=== PATIENT | male | born 1960 | race Caucasian/White ===

== ENCOUNTER 2016-09-13 16:07 | Inpatient (IN) | payer OTHER ==
[~2016-09-13] VITALS: Ht 177.8 cm; Wt 125.0 kg
[2016-09-20] MEDS ORDERED: FISH1000 PO (09:06)
[2016-09-20] MEDS ORDERED: VALT500T PO (09:06)
[2016-09-20] MEDS ORDERED: CELE200C PO (09:06)
[2016-09-20] MEDS ORDERED: VITA10003 PO (09:06)
[2016-09-20] MEDS ORDERED: METF1000 PO (09:06)
[2016-09-20] MEDS ORDERED: LEVO125T4 PO (09:06)
[2016-09-20] MEDS ORDERED: ACET-703 PO (09:06)
[2016-09-20] MEDS ORDERED: SIMV20TA PO (09:06)
[2016-09-20] MEDS ORDERED: CIAL20TA PO (09:06)
[2016-09-20] MEDS ORDERED: LISI10TA3 PO (09:06)
[2016-09-20] MEDS ORDERED: FORTESTA PO (09:06)
--- NOTE | 2016-09-28 13:40 | MH ---
cc: Sanchez GARRETT M.D. DATE OF ADMISSION: 09/29/2016 ADMITTING DIAGNOSIS: Osteoarthritic degeneration right hip now being admitted for right total hip arthroplasty. HISTORY OF PRESENT ILLNESS: This pleasant 55-year-old male is being admitted today for right total hip arthroplasty due to severe painful osteoarthritic degeneration right hip. OTHER PAST HISTORY: 1. The patient has a history of arthritis. 2. Diabetes 3. Back pain 4. Thyroid issues CURRENT MEDICATIONS 1. Metformin. 2. Lisinopril. 3. Simvastatin 4. Thyroxine. 5. Celebrex. 6. Valacyclovir 7. Tamsulosin 8. Cialis as needed for michael. 9. Vitamin D3 10. Fish oil 11. Tylenol for arthritis. PAST SURGICAL HISTORY: Previous surgeries include the thoracic removed from his left leg in the past and some moles removed. REVIEW OF SYSTEMS Noncontributory. FAMILY HISTORY Noncontributory. SOCIAL HISTORY: The patient does not smoke. Drinks occasionally. ALLERGIES Has no known allergies. PHYSICAL EXAMINATION IN GENERAL: A 55-year-old male well-developed, well-nourished oriented x3 complain of pain his right hip. VITAL SIGNS: Blood pressure 124/82, pulse 58 and regular, respirations 18, temperature 98.3, pulse oximetry 97% on room air. HEAD, EYES, EARS, NOSE, AND THROAT: Eyes Pupils equal, round, reactive to light and accommodation, extraocular movements intact. Ear, nose, and mouth clear. NECK: The neck is supple. LUNGS: The lungs are clear. HEART: Regular rate. ABDOMEN: Soft. Positive bowel sounds, nontender. EXTREMITIES: The extremities reveals right hip to have decreased range of motion neurovascularly to his toes. IMPRESSION Severe painful osteoarthritic degeneration right hip. PLAN Admission right total hip arthroplasty today. The patient given prescription postoperative pain anticoagulation control in the office understands to use Hibiclens scrub and Bactroban and plans on going home after stay in the hospital. He does have a scratch on his left forearm which is healing well and should not be a problem. JMD RADHA Antunez/miguel /1:28 PM /1:32 PM
[2016-09-29] MEDS ORDERED: INSULIN HUMAN REGULAR 1,000 UNITS/10 ML VIAL SQ PRN (06:30)
[2016-09-29] MEDS ORDERED: LACTATED RINGER'S 1000 ML IV PRN (06:30)
[2016-09-29] MEDS ORDERED: VANCOMYCIN 1000 MG/NS 250 ML (for <70 kg) IV SCH ×2 (06:30)
[2016-09-29] MEDS ORDERED: SODIUM CHLORID 0.9% 500 ML IV PRN (06:30)
[2016-09-29] MEDS ORDERED: POVIDONE IODINE 5% (ANTISEPSIS KIT) 4 APPLICATIONS EACH NARE PRN (06:30)
[2016-09-29] MEDS ORDERED: CHLORHEXIDINE GLUCONATE 2 % 1 PACK (2 CLOTHS) TOPICAL PRN (06:30)
[2016-09-29] MEDS ORDERED: ceFAZolin 2 GM PREMIX 50 ML IV SCH (06:30)
[2016-09-29] MEDS ORDERED: METOPROLOL TARTRATE 25 MG TAB PO PRN (06:30)
[2016-09-29] MEDS ORDERED: TAMS0.4C4 PO (07:02)
[2016-09-29 07:07] VITALS: BP 123/76; PULSE 56; RESP 18; TEMP 98.5; O2SAT 96
[2016-09-29] MEDS ORDERED: ACETAMINOPHEN 1000 MG/100 ML VIAL IV ONE (07:36)
[2016-09-29] MEDS ORDERED: fentaNYL CITRATE 250 MCG/5 ML AMP ONE (07:36)
[2016-09-29] MEDS ORDERED: MIDAZOLAM HCL 2 MG/2 ML VIAL ONE (07:36)
[2016-09-29] MEDS ORDERED: FAMOTIDINE 20 MG/2 ML VIAL ONE (07:36)
[2016-09-29] MEDS ORDERED: TRANEXAMIC ACID IV SCH ×2 (08:00→11:00)
[2016-09-29] MEDS ORDERED: SODIUM CHLORIDE 0.9% IV SCH ×2 (08:00→11:00)
[2016-09-29] MEDS ORDERED: EXPAREL PERI-ARTICULAR INJECTION (TOTAL VOL. 60 ML) P-ARTICULR SCH ×2 (08:00)
[2016-09-29] MEDS ORDERED: ceFAZolin INJ 1,000 MG VIAL IM ONE (08:50)
--- NOTE | 2016-09-29 10:36 | HHI.FF ---
Face to Face Verification Diagnosis: (1) Status post right hip replacement Physical Therapy Gait training Hip: Total hip, Protocol: Right, Posterior hip precautions, Abduction pillow while in bed, Progress to weight bearing Nursing RN: 3 days/week x 2 weeks Nursing: Rick teaching, Dressing changes Dressing Changes: Daily dressing change, 4x4s, Gauze, Paper tape I have seen patient Rolan Skinner on 09/29/16. My clinical findings support the need for the requested home health care services because: Limited ability to care for self High risk of falls I certify that my clinical findings support that this patient is homebound because: Unsteady gait/balance Sanchez Mehta MD Sep 29, 2016 10:36
[2016-09-29] MEDS ORDERED: MISC-163 (10:38)
[2016-09-29] MEDS ORDERED: WALKER WHEELS/F1 MIS (10:38)
[2016-09-29] MEDS ORDERED: ACETAMINOPHEN 325 MG TAB PO PRN (10:45)
[2016-09-29] MEDS ORDERED: ACETAMINOPHEN/HYDROcodone 325 MG/7.5 MG TAB PO PRN (10:45)
[2016-09-29] MEDS ORDERED: CIALIS 20 MG PO PRN (10:45)
[2016-09-29] MEDS ORDERED: ONDANSETRON HCL 4 MG/2 ML VIAL IVP PRN (10:45)
[2016-09-29] MEDS ORDERED: TEMAZEPAM 15 MG CAP PO PRN (10:45)
[2016-09-29] MEDS ORDERED: SODIUM CHLORIDE 0.9% FLUSH 5 ML FLUSH IVF PRN (10:45)
[2016-09-29] MEDS ORDERED: ACETAMINOPHEN 500 MG CPLT PO PRN (10:45)
[2016-09-29] MEDS ORDERED: NALOXONE HCL 0.4 MG/ML AMP IV PRN (10:45)
[2016-09-29] MEDS ORDERED: TRANEXAMIC ACID INJ 0 MG in SODIUM CHLORIDE 0.9% INJ 100 ML IV SCH (10:45)
[2016-09-29] MEDS ORDERED: MORPHINE SULFATE 8 MG/ML INJ IV PUSH PRN (10:45)
[2016-09-29] MEDS ORDERED: BISACODYL 10 MG SUPP RECTAL PRN (10:45)
[2016-09-29] MEDS ORDERED: Post-op Orders (for Pharmacy) MISC XX ONE (10:45)
[2016-09-29] MEDS ORDERED: MISCELLANEOUS NURSING INFORMATION XX PRN (10:45)
[2016-09-29] MEDS ORDERED: MAGNESIUM HYDROXIDE SUSP 30 ML CUP PO PRN (10:45)
[2016-09-29] MEDS ORDERED: MORPHINE SULFATE 4 MG/ML INJ ONE (11:10)
[2016-09-29] MEDS ORDERED: *HYDROmorphone PF 1 MG VIAL PERIprocedural Use ONLY ONE ×2 (11:17→11:28)
[2016-09-29] MEDS: LACTATED RINGER'S 1000 ML INJ 1,000 ML IV SCH ×2 (11:41→23:02)
--- NOTE | 2016-09-29 11:46 | MP ---
cc: Sanchez MEHTA M.D. DATE OF SURGERY 09/29/2016 PREOPERATIVE DIAGNOSIS Severe painful osteoarthritic degeneration right hip. POSTOPERATIVE DIAGNOSIS Severe painful osteoarthritic degeneration right hip. SURGERY PERFORMED Right total hip arthroplasty using Aesculap components size 54 cup with a 32 mm screw and a size 36 E-liner poly with a size 11 lateralized stem and a 36 standard ceramic head. No cement utilized. SURGEON Dr. Mehta DIRECTOR DATA PROCESSING LO New ANESTHESIA General intubation PROCEDURE The patient was brought to the Operating Room, where after successful induction of spinal anesthesia was placed on the operating room table in the left lateral decubitus position. The right hip, thigh and leg were prepped and draped in the usual manner. A posterolateral approach was then utilized by making an incision over the proximal portion of the femur lateral aspect, carried across the greater trochanter, carried posterior in a curved incision toward the buttock. The incision was carried down through the subcutaneous tissue, through the fibers of the tensor fascia guzman and gluteus dayton to expose the greater trochanteric bursa. This was then removed by sharp and blunt dissection. The hip was then internally rotated to expose the insertions of the short external rotators of the hip and were incised at their insertion into the greater trochanter and reflected posterior to protect the sciatic nerve. These were held with a Charnley retractor to better visualize the hip joint. The capsule was identified and removed by sharp dissection. The hip was then dislocated by internal rotation and flexion of the hip. The femoral calcar was then measured using the trial components for the appropriate length cut of the neck using an oscillating saw. After the cut was made the head was removed. The acetabulum was then approached and measured, the acetabulum reamed with the acetabular reamers. Next, the femoral calcar was approached by first inserting a canal finder followed by rigid reamers, followed by a cookie-cutter to the appropriate size, in this case being a #15. The broach was left in place and a planer used to plane the calcar to a smooth finish. The broach was then removed. The trial components were then inserted into place, the hip reduced, found to track smoothly with no evidence of subluxation or dislocation. All trial components were removed. The wound was irrigated copiously with antibiotic solution and Water-Pik. The actual components were then inserted and impacted into place using Aesculap components size 54 cup with a 32 mm screw and a size 36 E-liner poly with a size 11 lateralized stem and a 36 standard ceramic head. No cement. The hip was reduced, found to track smoothly with no evidence of subluxation or dislocation. The wound was irrigated copiously with antibiotic solution, meticulous hemostasis achieved. No drain utilized. 60 cc of Exparel used for around the incision staying away from the sciatic nerve for extra pain control. The capsule approximated with interrupted #1 Vicryl suture, deep fascia approximated with running #2 quill, subcutaneous tissue approximated using interrupted and running 2-0 and 3-0 Monocryl suture. Steri-Strips, sterile dressing, abduction pillow, brace and knee immobilizer, sciatic nerve identified, and protected throughout the procedure. Estimated blood loss 300 cc Sponge and suture counts correct. The patient tolerated the procedure well and left the operating room in satisfactory condition. J. MD RADHA Manrique/PINO /10:43 AM /11:24 AM FELICIANO
[2016-09-29] MEDS ORDERED: DO NOT ADM ANY ANTICOAGULANT DRUGS PRN (12:00)
[2016-09-29] MEDS ORDERED: PROPOFOL 200 MG/20 ML AMP IV ONE (12:00)
[2016-09-29] MEDS ORDERED: ONDANSETRON HCL 4 MG/2 ML VIAL IV PUSH ONE (12:00)
[2016-09-29] MEDS ORDERED: LACTATED RINGER'S 1000 ML INJ 1,000 ML IV ONE (12:00)
[2016-09-29] MEDS ORDERED: ePHEDrine/NS 25 MG/5 ML SYR IV ONE (12:00)
--- NOTE | 2016-09-29 12:19 | RADRPT ---
EXAM DATE/TIME: 09/29/2016 12:46 [facility] COMPARISON: No previous studies available for comparison. INDICATIONS : Post op hip replacement MEDICAL HISTORY : None. SURGICAL HISTORY : None. ENCOUNTER: Initial ACUITY: 1 day PAIN SCORE: Non-responsive. LOCATION: Right Hip FINDINGS: Single AP portable view of the right hip demonstrates a right hip arthroplasty. Normal alignment.. CONCLUSION: Right hip arthroplasty. Mic Rene MD on September 29, 2016 at 12:16 Board Certified Radiologist. This report was verified electronically.
--- NOTE | 2016-09-29 12:59 | PD.CONS ---
[facility] By [facility] Reason for Consult Medical management Primary Care Physician Cristine Hernadez MD Diagnoses: History of Present Illness 55-year-old male with a history of diabetes type 2, hyperlipidemia, right severe hip osteoarthritis who despite medical management continue to have right hip pain affecting his daily living of activity underwent right total hip arthroplasty. Postoperatively, patient denies any chest pain or shortness of breath. Vitals stable. Review of Systems Other 12 system reviewed and are negative except for the one mentioned in history of present illness Past Family Social History Allergies: Coded Allergies: No Known Allergies (Unverified , 09/29/16) Past Medical History 1. Right hip osteoarthritis 2. Diabetes2 3. Back pain 4. Hypothyroidism Past Surgical History Right total hip arthroplasty 09/29/16 Reported Medications 2. Diabetes 3. Back pain 4. Thyroid issues 1. Metformin. 2. Lisinopril. 3. Simvastatin 4. Thyroxine. 5. Celebrex. 6. Valacyclovir 7. Tamsulosin 8. Cialis as needed for michael. 9. Vitamin D3 10. Fish oil 11. Tylenol for arthritis. Family History Noncontributory Social History Patient denies tobacco, alcohol or illicit drug intake Physical Exam Vital Signs Vital Signs Date Time Temp Pulse Resp B/P Pulse Ox O2 Delivery O2 Flow Rate FiO2 09/29/16 11:45 63 16 127/77 94 Nasal Cannula 3 09/29/16 11:30 63 16 129/81 97 Nasal Cannula 3 09/29/16 11:15 70 16 117/81 97 Nasal Cannula 3 09/29/16 11:00 97.6 85 16 116/83 97 Nasal Cannula 3 09/29/16 07:07 98.5 56 18 123/76 96 Physical Exam GENERAL: This is a well-nourished, well-developed patient, in no apparent distress. SKIN: No rashes, ecchymoses or lesions. Cool and dry. HEAD: Atraumatic. Normocephalic. No temporal or scalp tenderness. EYES: Pupils equal round and reactive. Extraocular motions intact. No scleral icterus. No injection or drainage. ENT: Nose without bleeding, purulent drainage or septal hematoma. Throat without erythema, tonsillar hypertrophy or exudate. Uvula midline. Airway patent. NECK: Trachea midline. No JVD or lymphadenopathy. Supple, nontender, no meningeal signs. CARDIOVASCULAR: Regular rate and rhythm without murmurs, gallops, or rubs. RESPIRATORY: Clear to auscultation. Breath sounds equal bilaterally. No wheezes , rales, or rhonchi. GASTROINTESTINAL: Abdomen soft, non-tender, nondistended. No hepato-splenomegaly , or palpable masses. No guarding. MUSCULOSKELETAL: Extremities without clubbing, cyanosis, or edema. No joint tenderness, effusion, or edema noted. Right hip repair, neurovascular intact NEUROLOGICAL: Awake and alert. Cranial nerves II through XII intact. Motor and sensory grossly within normal limits. Five out of 5 muscle strength in all muscle groups. Normal speech. Laboratory Laboratory Tests Test 09/29/16 07:08 Blood Type O NEGATIVE Antibody Screen NEGATIVE Blood Bank Comment Imaging Last Impressions Hip X-Ray 09/29/16 1032 Signed Impressions: Service Date/Time: Thursday, September 29, 2016 12:46 - CONCLUSION: Right hip arthroplasty. Mic Rene MD Assessment and Plan Assessment and Plan 55-year-old man with Right hip osteoarthritis: Status post right total hip arthroplasty and management per orthopedic surgery,. Continue current postop care including pain management, IV antibiotics. PT consult to treat and eval. Lovenox for DVT prophylaxis Diabetes type 2: Continue outpatient medication including metformin Hypothyroidism: Resume Synthroid Other chronic medical conditions: Resume outpatient medications DVT prophylaxis: Lovenox Code Status Full code Discussed Condition With Patient Misbah Fuentes MD Sep 29, 2016 12:59
[2016-09-29 13:28] VITALS: BP 111/59; PULSE 59; RESP 18; TEMP 97.2; O2SAT 94
[2016-09-29] MEDS: MORPHINE SULFATE 30 MG/30 ML PCA IV SCH ×3 (13:33→21:14)
[2016-09-29] MEDS: PCA - TOTAL MG MORPHINE DELIVERED PER SHIFT SCH ×2 (13:47→22:00)
[2016-09-29 16:00] VITALS: BP 111/71; PULSE 58; RESP 16; TEMP 95.8; O2SAT 96
[2016-09-29 16:22] VITALS: O2SAT 94
[2016-09-29] MEDS: metFORMIN HCL 500 MG TAB PO SCH (19:25)
[2016-09-29] MEDS: ACETAMINOPHEN/HYDROcodone 325 MG/7.5 MG TAB PO PRN (19:36)
[2016-09-29 20:00] VITALS: BP 142/80; PULSE 62; RESP 18; TEMP 99.8; O2SAT 96
[2016-09-29] MEDS: SODIUM CHLORIDE 0.9% FLUSH 5 ML FLUSH IVF SCH (21:00)
[2016-09-30] VITALS (9 sets, daily range): BP systolic 93–136; BP diastolic 53–80; PULSE 69–86; RESP 17–20; TEMP 98.2–100.4; O2SAT 94–98
[2016-09-30] MEDS: ACETAMINOPHEN/HYDROcodone 325 MG/7.5 MG TAB PO PRN ×5 (03:38→21:47)
[2016-09-30] MEDS: MORPHINE SULFATE 30 MG/30 ML PCA IV SCH (05:18)
[2016-09-30 05:42] LABS: HEMATOCRIT 37.7 % (39.0-51.0); REVIEW FLAG FINAL
[2016-09-30] MEDS: PCA - TOTAL MG MORPHINE DELIVERED PER SHIFT SCH (06:00)
[2016-09-30] MEDS: LEVOTHYROXINE SODIUM 125 MCG TAB PO SCH (06:14)
[2016-09-30] MEDS: CHLORHEXIDINE GLUCONATE 4% SOLN 120 ML BTL TOPICAL SCH (06:30)
[2016-09-30] MEDS: LISINOPRIL 10 MG TAB PO SCH (08:53)
[2016-09-30] MEDS: PRAVASTATIN SOD 40 MG TAB PO SCH (08:53)
[2016-09-30] MEDS: CHOLECALCIFEROL (VIT D3) 1000 UNIT TAB PO SCH (08:53)
[2016-09-30] MEDS: metFORMIN HCL 500 MG TAB PO SCH ×2 (08:53→17:40)
[2016-09-30] MEDS: TAMSULOSIN HCL 0.4 MG CAP PO SCH (08:53)
[2016-09-30] MEDS: SODIUM CHLORIDE 0.9% FLUSH 5 ML FLUSH IVF SCH ×2 (08:53→21:00)
[2016-09-30] MEDS: CELECOXIB 200 MG CAP PO SCH (08:53)
[2016-09-30] MEDS ORDERED: FORTESTA PO SCH (09:00)
[2016-09-30] MEDS ORDERED: NON-FORMULARY DRUG (Omega-3 Fatty Acids (Fish Oil) 1,000 MG) PO SCH (09:00)
[2016-09-30] MEDS ORDERED: INFLUENZA VIRUS VACCINE (QUADRIVALENT) 0.5 ML SYR IM ONE (10:00)
[2016-09-30] MEDS: ENOXAPARIN SODIUM 30 MG/0.3 ML SYRINGE SQ SCH ×2 (10:02→21:49)
--- NOTE | 2016-09-30 10:18 | HHI.PR ---
Subjective Remarks Patient seen and examined Complains of inadequate pain control to left hip Afebrile Objective Vitals Vital Signs Date Time Temp Pulse Resp B/P Pulse Ox O2 Delivery O2 Flow Rate FiO2 09/30/16 08:55 94 21 09/30/16 07:50 99.1 80 18 136/72 96 09/30/16 06:00 18 09/30/16 05:18 17 09/30/16 04:39 100.2 82 20 125/80 95 09/29/16 22:00 18 09/29/16 21:35 96 Nasal Cannula 2.00 09/29/16 21:14 18 09/29/16 20:00 99.8 62 18 142/80 96 09/29/16 16:22 94 Nasal Cannula 2.00 09/29/16 16:00 95.8 58 16 111/71 96 09/29/16 13:47 17 09/29/16 13:37 Nasal Cannula 2.00 09/29/16 13:33 12 09/29/16 13:28 97.2 59 18 111/59 94 09/29/16 12:45 61 16 113/70 95 Nasal Cannula 3 09/29/16 11:45 63 16 127/77 94 Nasal Cannula 3 09/29/16 11:30 63 16 129/81 97 Nasal Cannula 3 09/29/16 11:15 70 16 117/81 97 Nasal Cannula 3 09/29/16 11:00 97.6 85 16 116/83 97 Nasal Cannula 3 I/O 09/29/16 09/29/16 09/29/16 09/30/16 09/30/16 09/30/16 07:00 15:00 23:00 07:00 15:00 23:00 Intake Total 2495 ml 1230 ml 953 ml Output Total 850 ml 450 ml 950 ml Balance 1645 ml 780 ml 3 ml Intake Oral 240 ml 520 ml 650 ml IV Total 655 ml 710 ml 303 ml Other 1600 ml Output Urine Total 550 ml 450 ml 950 ml Estimated Blood Loss 300 ml Other 0 ml # Bowel Movements 0 0 Result Diagram: 09/30/16 0500 Imaging Last Impressions Hip X-Ray 09/29/16 1032 Signed Impressions: Service Date/Time: Thursday, September 29, 2016 12:46 - CONCLUSION: Right hip arthroplasty. Mic Rene MD Objective Remarks GENERAL: NAD SKIN: Warm and dry. HEAD: Normocephalic. EYES: No scleral icterus. No injection or drainage. NECK: Supple, trachea midline. No JVD or lymphadenopathy. CARDIOVASCULAR: Regular rate and rhythm without murmurs, gallops, or rubs. RESPIRATORY: Breath sounds equal bilaterally. No accessory muscle use. GASTROINTESTINAL: Abdomen soft, non-tender, nondistended. MUSCULOSKELETAL: No cyanosis, or edema. Left hip repair-neurovascular intact BACK: Nontender without obvious deformity. No CVA tenderness. A/P Assessment and Plan 55-year-old man with Right hip osteoarthritis: Status post right total hip arthroplasty and management per orthopedic surgery,. Continue current postop care including pain management. PT to treat and eval. Lovenox for DVT prophylaxis Diabetes type 2: Continue outpatient medication including metformin Hypothyroidism: on Synthroid Other chronic medical conditions: Continue outpatient medications DVT prophylaxis: Lovenox Misbah Fuentes MD Sep 30, 2016 10:18
--- NOTE | 2016-09-30 11:08 | PD.ORT.PN ---
Subjective Subjective Remarks pt complaining of some pain when in bed but not too bad when OOB and ambulating. Objective Vitals Vital Signs Date Time Temp Pulse Resp B/P Pulse Ox O2 Delivery O2 Flow Rate FiO2 09/30/16 08:55 94 21 09/30/16 07:50 99.1 80 18 136/72 96 09/30/16 06:00 18 09/30/16 05:18 17 09/30/16 04:39 100.2 82 20 125/80 95 09/29/16 22:00 18 09/29/16 21:35 96 Nasal Cannula 2.00 09/29/16 21:14 18 09/29/16 20:00 99.8 62 18 142/80 96 09/29/16 16:22 94 Nasal Cannula 2.00 09/29/16 16:00 95.8 58 16 111/71 96 09/29/16 13:47 17 09/29/16 13:37 Nasal Cannula 2.00 09/29/16 13:33 12 09/29/16 13:28 97.2 59 18 111/59 94 09/29/16 12:45 61 16 113/70 95 Nasal Cannula 3 09/29/16 11:45 63 16 127/77 94 Nasal Cannula 3 09/29/16 11:30 63 16 129/81 97 Nasal Cannula 3 09/29/16 11:15 70 16 117/81 97 Nasal Cannula 3 I/O 09/29/16 09/29/16 09/29/16 09/30/16 09/30/16 09/30/16 07:00 15:00 23:00 07:00 15:00 23:00 Intake Total 2495 ml 1230 ml 953 ml Output Total 850 ml 450 ml 950 ml Balance 1645 ml 780 ml 3 ml Intake Oral 240 ml 520 ml 650 ml IV Total 655 ml 710 ml 303 ml Other 1600 ml Output Urine Total 550 ml 450 ml 950 ml Estimated Blood Loss 300 ml Other 0 ml # Bowel Movements 0 0 Result Diagram: 09/30/16 0500 Objective Remarks Dressing dry and intact. NV intact to toes. No calf tenderness. 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 Sanchez Mehta MD Sep 30, 2016 11:08
[2016-09-30] MEDS: LACTATED RINGER'S 1000 ML INJ 1,000 ML IV SCH (11:32)
[2016-09-30] MEDS: MULTIVITAMINS/MINERALS THERAPEUTIC TAB PO SCH (21:45)
[2016-09-30] MEDS: DOCUSATE SODIUM 100 MG CAP PO SCH (21:45)
[2016-10-01] MEDS: LACTATED RINGER'S 1000 ML INJ 1,000 ML IV SCH ×2 (00:02→11:53)
[2016-10-01 03:38] VITALS: BP 92/50; PULSE 74; RESP 17; TEMP 98.8; O2SAT 97
[2016-10-01] MEDS: LEVOTHYROXINE SODIUM 125 MCG TAB PO SCH (06:00)
[2016-10-01 06:03] LABS: HEMATOCRIT 33.5 % (39.0-51.0); REVIEW FLAG FINAL
[2016-10-01] MEDS: ACETAMINOPHEN/HYDROcodone 325 MG/7.5 MG TAB PO PRN ×2 (06:13→10:24)
[2016-10-01] MEDS: CHLORHEXIDINE GLUCONATE 4% SOLN 120 ML BTL TOPICAL SCH (06:30)
[2016-10-01 07:49] VITALS: BP 101/51; PULSE 77; RESP 16; TEMP 98.2; O2SAT 96
--- NOTE | 2016-10-01 08:04 | PD.ORT.PN ---
Subjective Subjective Remarks pt complaining of some weakness in hip strength when trlyiing to get OOB. Objective Vitals Vital Signs Date Time Temp Pulse Resp B/P Pulse Ox O2 Delivery O2 Flow Rate FiO2 10/01/16 07:49 98.2 77 16 101/51 96 10/01/16 03:38 98.8 74 17 92/50 97 09/30/16 23:54 99.9 74 17 97/53 95 09/30/16 22:04 99.7 09/30/16 22:04 100.4 09/30/16 19:20 98.9 69 17 93/55 94 09/30/16 19:04 Room Air 09/30/16 16:20 98.2 79 18 130/69 98 09/30/16 12:02 99.6 86 18 129/75 95 09/30/16 08:55 94 21 09/30/16 08:45 Room Air I/O 09/30/16 09/30/16 09/30/16 10/01/16 10/01/16 10/01/16 07:00 15:00 23:00 07:00 15:00 23:00 Intake Total 953 ml 1080 ml 480 ml 240 ml Output Total 950 ml Balance 3 ml 1080 ml 480 ml 240 ml Intake Oral 650 ml 1080 ml 480 ml 240 ml IV Total 303 ml Output Urine Total 950 ml # Voids 5 2 2 # Bowel Movements 0 0 1 Result Diagram: 10/01/16 0536 Objective Remarks Dressing dry and intact. NV intact to toes. No calf tenderness. Assessment & Plan Ortho Post Op Day #: 2 Problem List: Assessment and Plan Home today after PT. To office in 10 days. Sanchez Mehta MD Oct 01, 2016 08:04
--- NOTE | 2016-10-01 08:10 | HHI.DS ---
Discharge Summary Admission Date Sep 29, 2016 at 05:54 Discharge Date: Oct 01, 2016 Admitting Diagnosis Osteoarthritic degeneration right hip Diagnosis: (1) Status post right hip replacement Diagnosis: Principal Brief History This is a 55 year old male patient CBC/BMP: 10/01/16 0536 Significant Findings Laboratory Tests Test 09/30/16 10/01/16 05:00 05:36 Hemoglobin 12.8 GM/DL 11.7 GM/DL (13.0-17.0) (13.0-17.0) Hematocrit 37.7 % 33.5 % (39.0-51.0) (39.0-51.0) PE at Discharge Dressing dry and intact. NV intact to toes. No calf tenderness. Hospital Course Patient underwent a right total hip arthroplasty on day of admission. He received a course of prophylactic IV antibiotics and within 23 hours started on anticoagulation therapy. He began out of bed tolerating food and fluids well. He remained afebrile attempts under 101. His vital signs were stable he progressed with physical therapy. He tolerated by mouth pain meds and was independently being able to get out of bed to use the bathroom on postoperative day #2. He was therefore discharged on postoperative day #2 after physical therapy in stable condition with instructions to continue with home healthcare physical therapy anticoagulation therapy and by mouth pain meds. He has appointment for follow-up in the office for recheck. He was discharged in good condition. Pt Condition on Discharge: Good Discharge Disposition: Disch w/ Home Health Serv Discharge Instructions Diet Instructions: Heart Healthy Diet, Diabetic Diet Activities You Can Perform: Weight Bearing as Adele, Shower Only-No Bath Activities to Avoid: Bathing, Driving Sanchez Mehta MD Oct 01, 2016 08:10
[2016-10-01] MEDS: MULTIVITAMINS/MINERALS THERAPEUTIC TAB PO SCH (08:20)
[2016-10-01] MEDS: CHOLECALCIFEROL (VIT D3) 1000 UNIT TAB PO SCH (08:20)
[2016-10-01] MEDS: PRAVASTATIN SOD 40 MG TAB PO SCH (08:20)
[2016-10-01] MEDS: metFORMIN HCL 500 MG TAB PO SCH (08:20)
[2016-10-01] MEDS: LISINOPRIL 10 MG TAB PO SCH (08:20)
[2016-10-01] MEDS: CELECOXIB 200 MG CAP PO SCH (08:20)
[2016-10-01] MEDS: DOCUSATE SODIUM 100 MG CAP PO SCH (08:20)
[2016-10-01] MEDS: TAMSULOSIN HCL 0.4 MG CAP PO SCH (08:20)
[2016-10-01] MEDS: SODIUM CHLORIDE 0.9% FLUSH 5 ML FLUSH IVF SCH (08:22)
[2016-10-01] MEDS ORDERED: valACYclovir HCL 500 MG TAB PO SCH (09:00)
[2016-10-01 09:12] VITALS: O2SAT 92
[2016-10-01] MEDS: ENOXAPARIN SODIUM 30 MG/0.3 ML SYRINGE SQ SCH (10:25)
--- NOTE | 2016-10-01 10:54 | HHI.PR ---
Subjective Remarks Patient seen and examined Reports significant improvement of left hip pain, able to ambulate without any assistance Objective Vitals Vital Signs Date Time Temp Pulse Resp B/P Pulse Ox O2 Delivery O2 Flow Rate FiO2 10/01/16 09:12 92 21 10/01/16 07:49 98.2 77 16 101/51 96 10/01/16 03:38 98.8 74 17 92/50 97 09/30/16 23:54 99.9 74 17 97/53 95 09/30/16 22:04 99.7 09/30/16 22:04 100.4 09/30/16 19:20 98.9 69 17 93/55 94 09/30/16 19:04 Room Air 09/30/16 16:20 98.2 79 18 130/69 98 09/30/16 12:02 99.6 86 18 129/75 95 I/O 09/30/16 09/30/16 09/30/16 10/01/16 10/01/16 10/01/16 07:00 15:00 23:00 07:00 15:00 23:00 Intake Total 953 ml 1080 ml 480 ml 240 ml Output Total 950 ml Balance 3 ml 1080 ml 480 ml 240 ml Intake Oral 650 ml 1080 ml 480 ml 240 ml IV Total 303 ml Output Urine Total 950 ml # Voids 5 2 2 # Bowel Movements 0 0 1 Result Diagram: 10/01/16 0536 Objective Remarks GENERAL: NAD and sitting in a chair SKIN: Warm and dry. HEAD: Normocephalic. EYES: No scleral icterus. No injection or drainage. NECK: Supple, trachea midline. No JVD or lymphadenopathy. CARDIOVASCULAR: Regular rate and rhythm without murmurs, gallops, or rubs. RESPIRATORY: Breath sounds equal bilaterally. No accessory muscle use. GASTROINTESTINAL: Abdomen soft, non-tender, nondistended. MUSCULOSKELETAL: No cyanosis, or edema. Left hip repair-neurovascular intact BACK: Nontender without obvious deformity. No CVA tenderness. A/P Assessment and Plan 55-year-old man with Right hip osteoarthritis: Status post right total hip arthroplasty and management per orthopedic surgery,. Continue current postop care including pain management. PT to treat and eval. Lovenox for DVT prophylaxis. Clear for discharge by orthopedic surgery Diabetes type 2: Continue outpatient medication including metformin Hypothyroidism: on Synthroid Other chronic medical conditions: Continue outpatient medications DVT prophylaxis: Lovenox Discharge Planning Medically stable for discharge Misbah Fuentes MD Oct 01, 2016 10:54
[2016-10-01] MEDS ORDERED: PERI8.6T PO (10:55)
[2016-10-01 12:17] VITALS: BP 118/59; PULSE 74; RESP 16; TEMP 97.9; O2SAT 97
[2016-10-01] MEDS ORDERED: ZOFR4TAB PO (13:31)
== END 2016-10-01 15:13 | disposition home health service (06) | DRG 470 ==
LOC: HSDI 09-29 05:54 → N06A 09-29 13:13
PROVIDERS: ADMIT Surgery; ATTEND Surgery
PROC: 0SR904Z Replacement of Right Hip Joint with Ceramic on Polyethylene Synthetic Substitute, Open Approach (ICD-10-PCS; principal; 2016-09-29 08:01)
DX: M16.11 Unilateral primary osteoarthritis, right hip (principal); E03.9 Hypothyroidism, unspecified; E11.9 Type 2 diabetes mellitus without complications; E78.5 Hyperlipidemia, unspecified; M54.9 Dorsalgia, unspecified; Z79.84 Long term (current) use of oral hypoglycemic drugs
CPT/HCPCS: 73501; 85014; 85018; 86850; 86900; 86901; 94150; C1776; C9290; J0131; J0690; J1170; J1650; J2250; J2270; J2405; J3010; J3370; J7050; J7120; L1830

== ENCOUNTER → 2016-09-20 | Outpatient (CLI) | payer OTHER ==
[~2016-09-20] MED LIST: ACET-703 PO; CELE200C PO; CIAL20TA PO; FISH1000 PO; FORTESTA PO; LEVO125T4 PO; LISI10TA3 PO; METF1000 PO; MISC-163; PERI8.6T PO; SIMV20TA PO; TAMS0.4C4 PO; VALT500T PO; VITA10003 PO; WALKER WHEELS/F1 MIS; ZOFR4TAB PO
[2016-09-20 09:43] LABS: AUTOMATED NEUTROPHIL # 3.9 TH/MM3 (1.8-7.7); BASOPHIL # 0.1 TH/MM3 (0-0.2); BASOPHIL % 0.9 % (0.0-2.0); EOSINOPHIL # 0.1 TH/MM3 (0-0.4); EOSINOPHIL % 2.2 % (0.0-4.0); HEMATOCRIT 44.3 % (39.0-51.0); HEMO FLAGS DIFF FINAL; LYMPH % 24.5 % (9.0-44.0); LYMPHOCYTE # 1.6 TH/MM3 (1.0-4.8); MEAN CELL VOLUME 93.1 FL (80.0-100.0); MEAN CORPUSCULAR HEMOGLOBIN 30.2 PG (27.0-34.0); MEAN CORPUSCULAR HGB CONC 32.4 % (32.0-36.0); MONO % 10.9 % (0.0-8.0); NEUT % 61.5 % (16.0-70.0); PLATELET COUNT 268 TH/MM3 (150-450); RED BLOOD COUNT 4.75 MIL/MM3 (4.50-5.90); RED CELL DISTRIBUTION WIDTH 13.7 % (11.6-17.2); WHITE BLOOD COUNT 6.3 TH/MM3 (4.0-11.0)
[2016-09-20 09:49] LABS: BLOOD, URINE TRACE (NEG); GLUCOSE,URINE NEG (NEG); KETONE, URINE NEG (NEG); NITRITE,URINE NEG (NEG); SQUAMOUS EPITHELIAL CELL URINE <1 /hpf (0-5); URINE COLOR YELLOW (YELLW/STRAW)
[2016-09-20 09:49] LABS: APTT (PATIENT) 25.7 SEC (24.3-30.1); INTERNATIONAL NORMALIZED RATIO 0.9 RATIO; PROTHROMBIN TIME - PATIENT 10.2 SEC (9.8-11.6)
[2016-09-20 09:56] LABS: COMMENT (UR) CULT NOT INDICATED; CULTURE IF INDICATED CULT NOT INDICATED
[2016-09-20 10:41] LABS: ALKALINE PHOSPHATASE 70 U/L (45-117); ALT (GPT) 26 U/L (12-78); ANION GAP 9 MEQ/L (5-15); AST (GOT) 8 U/L (15-37); BICARBONATE 31.3 MEQ/L (21.0-32.0); BLOOD UREA NITROGEN 25 MG/DL (7-18); CHLORIDE 103 MEQ/L (98-107); GLOMERULAR FILTRATION RATE 73 ML/MIN (>89); GLUCOSE,FASTING 112 MG/DL (74-99); POTASSIUM 4.3 MEQ/L (3.5-5.1); SODIUM (NA) 143 MEQ/L (136-145); TOTAL BILIRUBIN ADULT 0.4 MG/DL (0.2-1.0)
--- NOTE | 2016-09-21 10:31 | EKG ---
Date Performed: 09/20/2016 Time Performed: 08:16:13 PTAGE: 55 years EKG: SINUS BRADYCARDIA BORDERLINE ECG NO PREVIOUS TRACING DOCTOR: Peg Lan Interpretating Date/Time 09/21/2016 10:26:09
== END ==
LOC: CPRE 07:49
PROVIDERS: ATTEND Surgery
DX: Z01.810 Encounter for preprocedural cardiovascular examination (principal); Z01.812 Encounter for preprocedural laboratory examination
CPT/HCPCS: 36415; 80053; 81001; 85025; 85610; 85730; 93005